=== PATIENT | female | born 1980 | race Two or more races ===

== ENCOUNTER 2018-02-20 01:14 | Emergency (ER) | payer OTHER ==
[~2018-02-20] VITALS: Ht 157.5 cm; Wt 101.6 kg
[2018-02-20 03:32] LABS: Basophils # (auto) 0 uL; Eosinophils % (auto) 0.5 % (0.0-7.0); Monocytes # (auto) 0.6 uL
[2018-02-20 03:34] LABS: Basophils % (auto) 0.3 % (0.0-2.0); Eosinophils # (auto) 0.1 uL; Hematocrit 32.5 % (36.0-46.0); Hemoglobin 10.2 g/dL (12.2-16.2); Lymphocytes # (auto) 2.6 uL; Lymphocytes % (auto) 25.9 % (10.0-50.0); Mean Corpuscular Hemoglobin 20.2 pg (28.0-32.0); Mean Corpuscular Hgb Conc. 31.3 g/dL (32.0-36.0); Mean Corpuscular Volume 64.5 fL (80.0-100.0); Monocytes % (auto) 5.5 % (0.0-12.0); Neutrophils # (auto) 6.9 uL; Neutrophils % (auto) 67.8 % (37.0-80.0); Platelet Count (auto) 215 10^3/uL (140-450); Red Blood Cells 5.04 10^6/uL (4.0-5.20); Red Cell Distribution Width 19.6 % (11.8-14.3); White Blood Cell 10.2 10^3/uL (4.4-10.8)
[2018-02-20 03:56] LABS: Alanine Aminotransferase 16 U/L (13-56); Albumin 3.4 g/dL (3.4-5.0); Alkaline Phosphatase 92 U/L (45-117); Anion Gap 7 (5-15); Aspartate Aminotransferase 5 U/L (15-37); BUN/Creatinine Ratio 16.1; Bilirubin, Total 0.3 mg/dL (0.2-1.0); Blood Alcohol < 3.0 mg/dL (0-5); Blood Urea Nitrogen 10 mg/dL (7-18); Calcium 8.1 mg/dL (8.5-10.1); Carbon Dioxide 26 mmol/L (21-32); Chloride 106 mmol/L (98-107); GFR African American 139 mL/min; GFR Non-African American 114 mL/min; Glucose 132 mg/dL (74-106); Magnesium 2.2 mg/dL (1.6-2.6); Potassium 3.7 mmol/L (3.5-5.1); Sodium 139 mmol/L (136-145); Total Protein 7.1 g/dL (6.4-8.2)
[2018-02-20] MEDS ORDERED: LORazepam 2MG/ML-1ML VIAL IV ONE (04:45)
[2018-02-20] MEDS ORDERED: ONDANSETRON HCL 4 MG/2 ML VIAL IV ONE (07:00)
[2018-02-20 07:28] VITALS: BP 112/60
[2018-03-13] MEDS ORDERED: CAR200T PO (12:55)
== END 2018-02-20 08:47 | disposition home or self-care (01) ==
LOC: EDBD 01:14 → ER 01:21
DX: G40.909 Epilepsy, unspecified, not intractable, without status epilepticus (principal)
CPT/HCPCS: 36415; 70450; 80053; 80320; 83735; 85025; 96374; 96375; 99285; J2060; J2405

== ENCOUNTER 2018-03-08 08:28 | Inpatient (IN) | payer OTHER ==
[~2018-03-08] VITALS: Ht 157.5 cm; Wt 102.7 kg
[2018-03-08] MEDS ORDERED: SODIUM CHLORIDE 0.9% 1,000 ML IV ONE (08:47)
[2018-03-08] MEDS ORDERED: LORazepam 2MG/ML-1ML VIAL IV ONE (09:00)
[2018-03-08 09:23] LABS: Basophils # (auto) 0 uL; Eosinophils # (auto) 0.1 uL; Eosinophils % (auto) 0.9 % (0.0-7.0); Hemoglobin 10.9 g/dL (12.2-16.2); Mean Corpuscular Hgb Conc. 30.9 g/dL (32.0-36.0); Neutrophils # (auto) 4.1 uL
[2018-03-08 09:25] LABS: Basophils % (auto) 0.5 % (0.0-2.0); Hematocrit 35.4 % (36.0-46.0); Lymphocytes # (auto) 2.1 uL; Lymphocytes % (auto) 30.7 % (10.0-50.0); Mean Corpuscular Hemoglobin 20.4 pg (28.0-32.0); Mean Corpuscular Volume 65.9 fL (80.0-100.0); Monocytes # (auto) 0.5 uL; Monocytes % (auto) 6.8 % (0.0-12.0); Neutrophils % (auto) 61.1 % (37.0-80.0); Platelet Count (auto) 211 10^3/uL (140-450); Red Blood Cells 5.37 10^6/uL (4.0-5.20); White Blood Cell 6.7 10^3/uL (4.4-10.8)
[2018-03-08 09:41] LABS: Albumin 3.6 g/dL (3.4-5.0); BUN/Creatinine Ratio 13.7; Bilirubin, Total 0.6 mg/dL (0.2-1.0); Calcium 8.4 mg/dL (8.5-10.1); Total Protein 7.6 g/dL (6.4-8.2)
[2018-03-08 09:43] LABS: Red Cell Distribution Width 20.3 % (11.8-14.3)
[2018-03-08 09:49] LABS: Urine Bacteria NONE SEEN /hpf (None Seen); Urine Blood Negative /uL (Negative); Urine Specific Gravity 1.008 (1.001-1.035); Urine WBC 1 /hpf (0 - 5)
[2018-03-08 09:52] LABS: Potassium 3.6 mmol/L (3.5-5.1)
[2018-03-08] MEDS ORDERED: carBAMazepine 200 MG TAB PO ONE (11:15)
[2018-03-08] MEDS ORDERED: LORazepam 2MG/ML-1ML VIAL IV PRN (13:00)
[2018-03-08] MEDS ORDERED: CARB200T PO (15:44)
[2018-03-08] MEDS ORDERED: [UNRECOGNIZED DRUG - CODE] PO (16:08)
[2018-03-08 17:00] VITALS: BP 119/72
[2018-03-08 21:50] VITALS: BP 118/70
[2018-03-08] MEDS: carBAMazepine 200 MG TAB PO SCH (23:03)
[2018-03-09 05:05] VITALS: BP 94/49
[2018-03-09 05:31] VITALS: BP 110/59
[2018-03-09 09:37] VITALS: BP 110/67
[2018-03-09] MEDS: carBAMazepine 200 MG TAB PO SCH ×2 (10:37→22:12)
[2018-03-09 13:16] VITALS: BP 118/75
[2018-03-09] MEDS ORDERED: PHENYTOIN IV DILANTIN 1,000 MG in SODIUM CHL 0.9% 250 ML IV ONE (15:30)
[2018-03-09 17:21] VITALS: BP 115/73
[2018-03-09 21:48] VITALS: BP 128/83
[2018-03-10 05:05] VITALS: BP 103/66
[2018-03-10 09:00] VITALS: BP 107/70
[2018-03-10] MEDS: carBAMazepine 200 MG TAB PO SCH ×2 (10:00→22:27)
[2018-03-10 13:00] VITALS: BP 122/71
[2018-03-10 17:05] VITALS: BP 119/70
[2018-03-10 22:21] VITALS: BP 116/71
[2018-03-11 05:05] VITALS: BP 107/65
[2018-03-11 08:00] VITALS: BP 110/57
[2018-03-11 08:30] VITALS: BP 110/57
[2018-03-11] MEDS: carBAMazepine 200 MG TAB PO SCH (10:00)
[2018-03-11 12:30] VITALS: BP 118/64
[2018-03-11] MEDS ORDERED: OXCA300T26 PO (14:19)
[2018-03-11 16:12] VITALS: BP 114/69
[2018-03-11] MEDS ORDERED: carBAMazepine 200 MG TAB PO SCH (17:30)
[2018-03-11 21:40] VITALS: BP 114/70
[2018-03-12 05:30] VITALS: BP 117/64
[2018-03-12] MEDS ORDERED: carBAMazepine 200 MG TAB PO SCH (08:00)
[2018-03-12 09:04] VITALS: BP 110/62
[2018-03-12 09:26] VITALS: BP 110/62
[2018-03-12 12:00] VITALS: BP 101/65
[2018-03-12 16:00] VITALS: BP 121/71
[2018-03-12] MEDS: carBAMazepine 200 MG TAB PO SCH (21:30)
[2018-03-12 22:05] VITALS: BP 122/74
[2018-03-13 05:46] VITALS: BP 102/69
[2018-03-13 08:51] VITALS: BP 106/57
[2018-03-13] MEDS: carBAMazepine 200 MG TAB PO SCH (10:29)
[2018-03-13 12:15] VITALS: BP 122/70
[2018-03-13] MEDS ORDERED: CAR200T PO ×2 (12:55)
[2018-03-13 13:43] VITALS: BP 122/70
== END 2018-03-13 14:45 | DRG 101 ==
LOC: ER 08:28 → EDBD 08:28 → OVERFLOW 08:29 → EEVIPCON 08:29 → EAST 15:33
PROVIDERS: ADMIT Internal Medicine; ATTEND Internal Medicine
DX: G40.909 Epilepsy, unspecified, not intractable, without status epilepticus (principal); F17.210 Nicotine dependence, cigarettes, uncomplicated; Z82.49 Family history of ischemic heart disease and other diseases of the circulatory system; Z83.3 Family history of diabetes mellitus; Z84.89 Family history of other specified conditions
CPT/HCPCS: 36415; 80053; 80156; 81001; 85025; 96361; 96365; 96375

== ENCOUNTER 2018-03-14 01:00 | Emergency (ER) | payer OTHER ==
[~2018-03-14] VITALS: Ht 157.5 cm; Wt 97.5 kg
[~2018-03-14 01:00] MED LIST: CAR200T PO; CARB200T PO; OXCA300T26 PO; [UNRECOGNIZED DRUG - CODE] PO
[2018-03-14 01:29] LABS: Eosinophils # (auto) 0 uL; Eosinophils % (auto) 0.4 % (0.0-7.0); Hemoglobin 12.1 g/dL (12.2-16.2); Lymphocytes # (auto) 2.8 uL
[2018-03-14 01:31] LABS: Basophils # (auto) 0.1 uL; Basophils % (auto) 0.6 % (0.0-2.0); Hematocrit 38.9 % (36.0-46.0); Lymphocytes % (auto) 26.9 % (10.0-50.0); Mean Corpuscular Hemoglobin 20.1 pg (28.0-32.0); Monocytes # (auto) 0.7 uL; Monocytes % (auto) 6.3 % (0.0-12.0); Neutrophils # (auto) 6.9 uL; Neutrophils % (auto) 65.8 % (37.0-80.0); Platelet Count (auto) 219 10^3/uL (140-450); Red Blood Cells 5.99 10^6/uL (4.0-5.20); White Blood Cell 10.4 10^3/uL (4.4-10.8)
[2018-03-14 01:32] LABS: Red Cell Distribution Width 20.1 % (11.8-14.3)
[2018-03-14 01:44] LABS: INR 0.94 (0.9-1.15); Partial Thromboplastin Time 24.3 sec (23.78-33.04); Prothrombin Time 10.1 sec (9.27-12.13)
[2018-03-14 01:50] LABS: Albumin 3.8 g/dL (3.4-5.0); BUN/Creatinine Ratio 16.7; Calcium 8.6 mg/dL (8.5-10.1); Potassium 3.3 mmol/L (3.5-5.1)
[2018-03-14 01:54] LABS: Bilirubin, Total 0.3 mg/dL (0.2-1.0)
[2018-03-14] MEDS ORDERED: LEVETIRACETAM INJ 1,000 MG in D5W 5% 100 ML IV ONE (03:30)
[2018-03-14] MEDS ORDERED: HYDROmorphone HCL 2 MG/ML VL IV ONE (04:00)
[2018-03-14] MEDS ORDERED: ONDANSETRON HCL 4 MG/2 ML VIAL IV ONE (04:00)
[2018-03-14] MEDS ORDERED: LEVETIRACETAM 500 MG/5ML INJ IV ONE (04:06)
[2018-03-14 04:19] VITALS: BP 119/56
== END 2018-03-14 05:47 | disposition home or self-care (01) ==
LOC: ER 01:05 → EEVIPCON 01:05 → ER 05:47
DX: G40.909 Epilepsy, unspecified, not intractable, without status epilepticus (principal); F41.9 Anxiety disorder, unspecified
CPT/HCPCS: 36415; 80053; 80156; 85025; 85610; 85730; 96365; 96375; 99284; J1170; J1953; J2405; J7060

== ENCOUNTER 2018-03-15 16:30 | Inpatient (IN) | payer OTHER ==
[~2018-03-15] VITALS: Ht 157.5 cm; Wt 97.1 kg
[~2018-03-15 16:30] MED LIST changes: -CARB200T PO; -OXCA300T26 PO; -[UNRECOGNIZED DRUG - CODE] PO
[2018-03-15 17:24] LABS: Urine Bacteria FEW /hpf (None Seen); Urine Blood Negative /uL (Negative); Urine Mucus FEW (None Seen); Urine Specific Gravity 1.027 (1.001-1.035); Urine WBC 2 /hpf (0 - 5)
[2018-03-15 17:36] LABS: Basophils # (auto) 0 uL; Eosinophils # (auto) 0.1 uL; Lymphocytes # (auto) 2.9 uL; White Blood Cell 7.6 10^3/uL (4.4-10.8)
[2018-03-15 17:38] LABS: Basophils % (auto) 0.5 % (0.0-2.0); Eosinophils % (auto) 1.1 % (0.0-7.0); Hematocrit 35.9 % (36.0-46.0); Hemoglobin 11.6 g/dL (12.2-16.2); Lymphocytes % (auto) 38.6 % (10.0-50.0); Mean Corpuscular Hemoglobin 21.2 pg (28.0-32.0); Mean Corpuscular Hgb Conc. 32.4 g/dL (32.0-36.0); Mean Corpuscular Volume 65.5 fL (80.0-100.0); Monocytes # (auto) 0.5 uL; Neutrophils % (auto) 52.8 % (37.0-80.0); Platelet Count (auto) 206 10^3/uL (140-450); Red Blood Cells 5.48 10^6/uL (4.0-5.20)
[2018-03-15 17:56] LABS: Albumin 3.8 g/dL (3.4-5.0); BUN/Creatinine Ratio 17.3; Bilirubin, Total 0.3 mg/dL (0.2-1.0); Calcium 8.5 mg/dL (8.5-10.1); Potassium 3.6 mmol/L (3.5-5.1); Total Protein 8.1 g/dL (6.4-8.2)
[2018-03-15] MEDS ORDERED: HYDROcodone-ACET 10/325MG TAB PO PRN (20:30)
[2018-03-15] MEDS ORDERED: D5W/SOD CHL 0.45% 1,000 ML IV ONE (20:30)
[2018-03-15] MEDS ORDERED: ONDANSETRON HCL 4 MG/2 ML VIAL IV PRN (20:30)
[2018-03-15 23:11] VITALS: BP 128/62
[2018-03-16 05:28] VITALS: BP 118/62
[2018-03-16 06:53] LABS: Albumin 3.4 g/dL (3.4-5.0); BUN/Creatinine Ratio 18.8; Bilirubin, Total 0.3 mg/dL (0.2-1.0); Calcium 8.1 mg/dL (8.5-10.1); Potassium 3.3 mmol/L (3.5-5.1); Total Protein 7.2 g/dL (6.4-8.2)
[2018-03-16] MEDS: carBAMazepine 200 MG TAB PO SCH ×2 (08:58→18:17)
[2018-03-16 09:00] VITALS: BP 109/51
[2018-03-16 12:44] VITALS: BP 116/63
[2018-03-16] MEDS ORDERED: POTASSIUM CHL 20 Meq TABLET PO ONE (16:15)
[2018-03-16 17:00] VITALS: BP 116/70
[2018-03-16 22:00] VITALS: BP 100/56
[2018-03-16] MEDS: SULFAMETHOX W/TRIMETH(800/160MG) DS TAB PO SCH (22:14)
[2018-03-17 05:06] VITALS: BP 107/48
[2018-03-17 06:33] LABS: Albumin 3.1 g/dL (3.4-5.0); BUN/Creatinine Ratio 12.7; Calcium 8.3 mg/dL (8.5-10.1); Potassium 3.9 mmol/L (3.5-5.1)
[2018-03-17 06:36] LABS: Bilirubin, Total 0.3 mg/dL (0.2-1.0); Total Protein 6.8 g/dL (6.4-8.2)
[2018-03-17] MEDS: carBAMazepine 200 MG TAB PO SCH (08:28)
[2018-03-17 09:00] VITALS: BP 105/45
[2018-03-17] MEDS: SULFAMETHOX W/TRIMETH(800/160MG) DS TAB PO SCH (10:27)
[2018-03-17 13:00] VITALS: BP 108/68
[2018-03-19 09:41] LABS: Hepatitis B Surface Antibody Negative
[2018-03-19 09:58] LABS: Hepatitis B Surface Antigen Negative (Negative)
[2018-03-19 10:17] LABS: Hepatitis A Total Antibody Positive
[2018-03-19 10:20] LABS: Hepatitis C Antibody Negative (Negative)
[2018-03-19 10:34] LABS: Hepatitis B Core Total AB Negative
== END 2018-03-17 13:45 | DRG 445 ==
LOC: EEVIPCON 16:35 → ER 16:35 → OVERFLOW 16:36 → EEVIPCON 16:36 → EAST 22:25
PROVIDERS: ADMIT Internal Medicine; ATTEND Internal Medicine
DX: K80.20 Calculus of gallbladder without cholecystitis without obstruction (principal); N39.0 Urinary tract infection, site not specified; E86.0 Dehydration; F12.90 Cannabis use, unspecified, uncomplicated; G40.909 Epilepsy, unspecified, not intractable, without status epilepticus; K57.30 Diverticulosis of large intestine without perforation or abscess without bleeding
CPT/HCPCS: 36415; 74176; 80053; 81001; 82150; 83690; 85025; 86704; 86706; 86708; 86803; 87081; 87340; 94761

== ENCOUNTER 2018-10-22 20:24 | Inpatient (IN) | payer OTHER | END 2018-10-26 16:15 | LOC: OVERFLOW 10-23 01:21 → EAST 10-23 12:55 → ER 20:24 | DX: G40.909 Epilepsy, unspecified, not intractable, without status epilepticus (principal); N20.0 Calculus of kidney; K80.20 Calculus of gallbladder without cholecystitis without obstruction ==